=== PATIENT | female | born 1975 | race American Indian/Alaskan Native ===

== ENCOUNTER 2019-06-12 15:48 | Outpatient (CLI) | payer OTHER ==
--- NOTE | 2019-06-13 16:02 | Mammography Report ---
DIGITAL SCREENING MAMMOGRAM WITH CAD, 06/12/2019 INDICATION: Routine screening mammography. Previously confirmed bilateral benign cysts. TECHNIQUE: Digital bilateral 2D mammography was obtained in the craniocaudal and mediolateral obliq ue projections. This examination was interpreted with the benefit of Computer-Aided Detection analysi s. COMPARISON: 06/01/2018 bilateral mammogram and 06/22/2018 bilateral breast ultrasound. FINDINGS: Breast Density: The breasts are heterogeneously dense, which may obscure small masses. There is no evidence of dominant mass, suspicious calcifications or architectural distortion in eithe r breast. Bilateral circumscribed densities are consistent with previously confirmed cysts. IMPRESSION: No mammographic evidence of malignancy. Follow up recommendation: Routine yearly BI-RADS Category 2: Benign. A "normal" or negative report should not discourage follow up or biopsy of a clinically significant f inding. A written summary of these findings will be mailed to the patient. The patient will be entered into a mammography reporting system which will generate a reminder letter for the patient's next appointmen t at the appropriate interval. The [employer] recommends yearly mammograms starting at age 40 and continuing as l waqas as a woman is in good health. Breast MRI is recommended for women with an approximate 20-25% or greater lifetime risk of breast cancer, including women with a strong family history of breast or ova teodoro cancer or who have been treated for Hodgkin's disease. Signer Name: Leno Qureshi MD Signed: 06/13/2019 3:58 PM Workstation Name: [id number]
== END 2019-06-12 15:49 | disposition home or self-care (01) ==
LOC: SPVWC 15:48
PROVIDERS: ATTEND Internal Medicine
DX: Z12.31 Encounter for screening mammogram for malignant neoplasm of breast (principal)
CPT/HCPCS: 77067

== ENCOUNTER 2020-08-30 15:49 | Outpatient (CLI) | payer BC | END 2020-08-30 15:50 | disposition home or self-care (01) | LOC: SPVWC 15:49 | PROVIDERS: ATTEND Internal Medicine | DX: Z12.31 Encounter for screening mammogram for malignant neoplasm of breast (principal) | CPT/HCPCS: 77067 ==